=== PATIENT | male | born 1980 | race Two or more races ===

== ENCOUNTER 2016-09-23 09:21 | Emergency (ER) | payer SELFPAY ==
[2016-09-23] MEDS ORDERED: NORMAL SALINE 1000 ML 1,000 ML IV PRN (09:59)
[2016-09-23] MEDS ORDERED: ONDANSETRON 4 MG TAB.RAPDIS SL ONE (09:59)
--- NOTE | 2016-09-23 10:01 | ER Document Report ---
ED Medical Screen (RME) - General Chief Complaint: Diarrhea Stated Complaint: VOMITING/DIZZY Mode of Arrival: Ambulatory Information source: Patient TRAVEL OUTSIDE OF THE [place] IN LAST 30 DAYS: No - HPI Patient complains to provider of: Nausea and diarrhea, lightheadedness Onset: Other - 3 days Onset/Duration: Persistent Quality of pain: Achy, Cramping Severity: Mild Pain Level: 1 Associated Symptoms: Dizzy/lightheaded Exacerbated by: Denies Relieved by: Denies Similar symptoms previously: No Recently seen / treated by doctor: No Notes: 09/23/16 10:00 It is a 35-year-old male to the emergency room today complaining of 3 day history of mild crampy abdominal pain, with nausea and diarrhea that has been going on for 3 days, no blood in his stools, no fevers, no questionable food intake, no history of similar symptoms previously, he does have a history of a hernia repair multiple years ago - Related Data Allergies/Adverse Reactions: No Known Allergies Allergy (Verified 09/23/16 09:24) Past Medical History - Social History Frequency of alcohol use: None Drug Abuse: None Renal/ Medical History: Denies: Hx Peritoneal Dialysis Psychiatric Medical History: Reports: Hx Anxiety, Hx Depression - Immunizations Hx Diphtheria, Pertussis, Tetanus Vaccination: Yes Physical Exam - Vital signs Vitals: Temp Pulse Resp BP Pulse Ox 98 F 72 16 135/85 H 100 09/23/16 09:25 09/23/16 09:25 09/23/16 09:25 09/23/16 09:25 09/23/16 09:25 Course - Vital Signs Vital signs: Temp Pulse Resp BP Pulse Ox 98 F 72 16 135/85 H 100 09/23/16 09:25 09/23/16 09:25 09/23/16 09:25 09/23/16 09:25 09/23/16 09:25
[2016-09-23 11:21] LABS: ABSOLUTE BASOPHILS # (AUTO) 0.1 10^3/uL (0.0-0.2); ABSOLUTE EOSINOPHILS # (AUTO) 0.1 10^3/uL (0.0-0.6); ABSOLUTE LYMPHOCYTES (AUTO) 2.6 10^3/uL (0.5-4.7); ABSOLUTE MONOCYTES (AUTO) 0.7 10^3/uL (0.1-1.4); ABSOLUTE NEUT (AUTO) 4.8 10^3/uL (1.7-8.2); BASOPHILS % (AUTO) 0.8 % (0-2); EOSINOPHILS % (AUTO) 1.7 % (0-6); HEMATOCRIT 43.1 % (37.9-51.0); HEMOGLOBIN 14.6 g/dL (13.5-17.0); HGB HCT DIFFERENCE 0.7; MEAN CORPUSCULAR HEMOGLOBIN 31.8 pg (27.0-33.4); MEAN CORPUSCULAR HGB CONC 33.9 g/dL (32.0-36.0); MEAN CORPUSCULAR VOLUME 94 fl (80-97); MONOCYTES % (AUTO) 8.9 % (3-13); RED BLOOD COUNT 4.59 10^6/uL (4.35-5.55); RED CELL DISTRIBUTION WIDTH 13.7 % (11.5-14.0); SEGMENTED NEUTROPHILS % (AUTO) 57.6 % (42-78); WHITE BLOOD COUNT 8.3 10^3/uL (4.0-10.5)
[2016-09-23 11:37] LABS: APPEARANCE,URINE SLIGHTLY-CLOUDY; BILIRUBIN,URINE SMALL (NEGATIVE); GLUCOSE, URINE NEGATIVE (NEGATIVE); KETONES,URINE TRACE mg/dL (NEGATIVE); LEUKOCYTE ESTERASE,URINE NEGATIVE (NEGATIVE); NITRITE,URINE NEGATIVE (NEGATIVE); PROTEIN,URINE 100 mg/dL (NEGATIVE); URINE SPECIFIC GRAVITY 1.031
[2016-09-23 11:48] LABS: ALANINE AMINOTRANSFERASE 27 U/L (21-72); ALBUMIN 4.3 g/dL (3.5-5.0); ALKALINE PHOSPHATASE 65 U/L (38-126); ANION GAP 11 (5-19); ASPARTATE AMINO TRANSFERASE 19 U/L (17-59); BILIRUBIN,DIRECT 0.4 mg/dL (0.0-0.4); BILIRUBIN,TOTAL 1.8 mg/dL (0.2-1.3); BLOOD UREA NITROGEN 9 mg/dL (7-20); CALCIUM 9.7 mg/dL (8.4-10.2); CARBON DIOXIDE 27 mmol/L (22-30); CHLORIDE 104 mmol/L (98-107); CREATININE RESULT 1.01 mg/dL (0.52-1.25); GLUCOSE 94 mg/dL (75-110); POTASSIUM 3.9 mmol/L (3.6-5.0); SODIUM 141.5 mmol/L (137-145); TOTAL PROTEIN 6.9 g/dL (6.3-8.2)
[2016-09-23 12:03] LABS: URINE BARBITURATES SCREEN NEGATIVE; URINE METHADONE SCREEN NEGATIVE; URINE OPIATES LOW NEGATIVE; URINE PHENCYCLIDINE SCREEN NEGATIVE
[2016-09-23] MEDS ORDERED: NORMAL SALINE 1000 ML 1,000 ML IV ONE (12:11)
--- NOTE | 2016-09-23 12:26 | ER Document Report ---
ED General - General Chief Complaint: Diarrhea Stated Complaint: VOMITING/DIZZY Time Seen by Provider: 09/23/16 10:01 Mode of Arrival: Ambulatory Information source: Patient Notes: 35-year-old male presents with complaints of weakness dizziness and diarrhea. Patient notes for the past 3-4 days he has been having constant diarrhea denies any well water antibiotic use. Patient denies withdrawal from any medications. Patient denies any fevers chills denies any nausea or vomiting. Patient does note when they are trying to get IV access on him today in the ED he family felt weak and dizzy and became diaphoretic and almost fainted TRAVEL OUTSIDE OF THE [place] IN LAST 30 DAYS: No - HPI Onset: Just prior to arrival Onset/Duration: Sudden Quality of pain: No pain Severity: Mild Pain Level: Denies Associated symptoms: Diarrhea, Weakness Exacerbated by: Denies Relieved by: Denies Similar symptoms previously: No Recently seen / treated by doctor: No - Related Data Allergies/Adverse Reactions: No Known Allergies Allergy (Verified 09/23/16 09:24) Past Medical History - General Information source: Patient - Social History Smoking Status: Current Every Day Smoker Cigarette use (# per day): Yes Chew tobacco use (# tins/day): No Smoking Education Provided: No Frequency of alcohol use: None Drug Abuse: None Family History: Reviewed & Not Pertinent Patient has suicidal ideation: No Patient has homicidal ideation: No Renal/ Medical History: Denies: Hx Peritoneal Dialysis Psychiatric Medical History: Reports: Hx Anxiety, Hx Depression - Immunizations Hx Diphtheria, Pertussis, Tetanus Vaccination: Yes Review of Systems - Review of Systems Notes: PHYSICAL EXAMINATION: GENERAL: Well-appearing, well-nourished and in no acute distress. HEAD: Atraumatic, normocephalic. EYES: Pupils equal round and reactive to light, extraocular movements intact, sclera anicteric, conjunctiva are normal. ENT: Nares patent, oropharynx clear without exudates. Moist mucous membranes. NECK: Normal range of motion, supple without lymphadenopathy LUNGS: Breath sounds clear to auscultation bilaterally and equal. No wheezes rales or rhonchi. HEART: Regular rate and rhythm without murmurs ABDOMEN: Soft, nontender, nondistended abdomen. No guarding, no rebound. No masses appreciated. Musculoskeletal: Normal range of motion, no pitting or edema. No cyanosis. NEUROLOGICAL: Cranial nerves grossly intact. Normal speech, normal gait. Normal sensory, motor exams PSYCH: Normal mood, normal affect. SKIN: Warm, Dry, normal turgor, no rashes or lesions noted. Physical Exam - Vital signs Vitals: Temp Pulse Resp BP Pulse Ox 98 F 72 16 135/85 H 100 09/23/16 09:25 09/23/16 09:25 09/23/16 09:25 09/23/16 09:25 09/23/16 09:25 Course - Re-evaluation Re-evalutation: 09/23/16 12:25 Labwork notes no significant abnormality, patient notes he feels much better after IV fluids have been given I will give him a another bag of fluids. Patient denies any other concerns I will discharge him home at this time After performing a Medical Screening Examination, I estimate there is LOW risk for INTRACRANIAL HEMORRHAGE, ISCHEMIC CVA, MALIGNANT DYSRHYTHMIA, ACUTE CORONARY SYNDROME, MENINGITIS, PULMONARY EMBOLISM, or SEPSIS thus I consider the discharge disposition reasonable. I have reevaluated this patient multiple times and no significant life threatening changes are noted. The patient and I have discussed the diagnosis and risks, and we agree with discharging home with close follow-up with the understanding that symptoms and presentations can change. We also discussed returning to the Emergency Department immediately if new or worsening symptoms occur. We have discussed the symptoms which are most concerning (e.g., changing or worsening pain, weakness, vomiting, fever) that necessitate immediate return. - Vital Signs Vital signs: Temp Pulse Resp BP Pulse Ox 98 F 72 16 135/85 H 100 09/23/16 09:25 09/23/16 09:25 09/23/16 09:25 09/23/16 09:25 09/23/16 09:25 - Laboratory Result Diagrams: 09/23/16 10:50 09/23/16 10:50 Laboratory results interpreted by me: 09/23/16 09/23/16 10:50 10:50 Total Bilirubin 1.8 H Urine Protein 100 H Urine Ketones TRACE H Urine Bilirubin SMALL H Urine Urobilinogen 2.0 H Discharge - Discharge Clinical Impression: Weakness, Dehydration Diarrhea Qualifiers: Diarrhea type: unspecified type Qualified Code(s): R19.7 - Diarrhea, unspecified Condition: Stable Disposition: HOME, SELF-CARE Instructions: Diarrhea, Nonspecific ([facility]) Referrals: [facility] [Primary Care Provider] - Follow up in 3-5 days
[2016-09-23 13:44] VITALS: BP 127/81
== END 2016-09-23 13:45 | disposition home or self-care (01) ==
LOC: ER 09:21
DX: R53.1 Weakness (principal); E86.0 Dehydration; R19.7 Diarrhea, unspecified; R11.10 Vomiting, unspecified; R42 Dizziness and giddiness
CPT/HCPCS: 99284; 96360; 96361; 36415; 87086; 80307 ×2; 83690; 85025; 80053; 81001; S0119; J7030

== ENCOUNTER 2019-04-30 16:23 | Emergency (ER) | payer SELFPAY ==
[2019-04-30] MEDS ORDERED: IBUPROFEN 800 MG TABLET PO ONE (16:39)
[2019-04-30] MEDS ORDERED: ONDANSETRON 4 MG TAB.RAPDIS PO ONE (16:39)
--- NOTE | 2019-04-30 16:45 | ER Document Report ---
HPI - HPI Patient complains to provider of: body aches fever cough sore throat nausea Time Seen by Provider: 04/30/19 16:34 Onset: Yesterday Onset/Duration: Sudden Quality of pain: Achy Severity: Severe Pain Level: 4 Context: This 38-year-old relatively healthy male presents emergency department with complaints of fever body aches sore throat nausea cough since yesterday. Patient reports he took DayQuil this morning. Has not taken anything else. Temperature on arrival was 102. Patient complains of nausea but denies vomiting diarrhea. Patient did not receive his flu vaccine. Associated Symptoms: Body/muscle aches, Nonproductive cough, Fever, Sore throat Exacerbated by: Denies Relieved by: Denies Similar symptoms previously: No Recently seen / treated by doctor: No - CONSTITUTIONAL Constitutional: REPORTS: Fever, Chills - EENT EENT: REPORTS: Sore Throat - NEURO Neurology: REPORTS: Weakness - CARDIOVASCULAR Cardiovascular: REPORTS: Chest pain - cough - RESPIRATORY Respiratory: REPORTS: Coughing Past Medical History - General Information source: Patient - Social History Smoking Status: Current Every Day Smoker Chew tobacco use (# tins/day): No Frequency of alcohol use: None Drug Abuse: None Occupation: [employer] Lives with: Family Family History: Reviewed & Not Pertinent Patient has suicidal ideation: No Patient has homicidal ideation: No Renal/ Medical History: Denies: Hx Peritoneal Dialysis Psychiatric Medical History: Reports: Hx Anxiety, Hx Depression Surgical Hx: Negative - Immunizations Hx Diphtheria, Pertussis, Tetanus Vaccination: Yes Vertical Provider Document - CONSTITUTIONAL Agree With Documented VS: Yes Exam Limitations: No Limitations General Appearance: WD/WN, No Apparent Distress - Nontoxic looking - INFECTION CONTROL TRAVEL OUTSIDE OF THE [place] IN LAST 30 DAYS: No - HEENT HEENT: Atraumatic, Normocephalic, Pharyngeal Erythema - Good airway opens mouth wide no trismus no tonsillar exudate. negative: Conjuctival Injection, Pharyngeal Exudate, Tympanic Membrane Red, Tympanic Membrane Bulging - NECK Neck: Normal Inspection, Supple. negative: Lymphadenopathy-Left, Lymphadenopathy-Right - RESPIRATORY Respiratory: Breath Sounds Normal, No Respiratory Distress - CARDIOVASCULAR Cardiovascular: Regular Rhythm, Tachycardia - GI/ABDOMEN Gastrointestinal: Abdomen Soft, Abdomen Non-Tender - MUSCULOSKELETAL/EXTREMETIES Musculoskeletal/Extremeties: MAEW, FROM, Non-Tender - NEURO Level of Consciousness: Awake, Alert, Appropriate Motor/Sensory: No Motor Deficit - DERM Integumentary: Warm, Dry, No Rash Course - Re-evaluation Re-evalutation: 04/30/19 16:43 38-year-old male presents with flu symptoms. Complains of cough fever nausea body aches. Zofran Motrin fluids flu test strep test and chest x-ray ordered. Patient was instructed on the importance of pushing fluids. 04/30/19 17:59 Flu strep negative, chest x-ray negative. Patient reports he feels 100% better. Patient was instructed on Zofran and Motrin. Instructed push fluids good handwashing follow-up with primary care return for worsening symptoms or concerns. He verbalized understanding to all instructions. - Vital Signs Vital signs: Temp Pulse Resp BP Pulse Ox 102.9 F H 110 H 24 H 133/79 H 98 04/30/19 16:29 04/30/19 16:29 04/30/19 16:29 04/30/19 16:29 04/30/19 16:29 - Diagnostic Test Radiology reviewed: Reports reviewed Discharge - Discharge Clinical Impression: Cough, Fever, Body aches, Sore throat Condition: Stable Disposition: HOME, SELF-CARE Instructions: Antinausea Medication ([facility]), Fever ([facility]), Ibuprofen (General) ([facility]), Sore Throat ([facility]) Additional Instructions: *You have been evaluated for cough, fever, nausea body aches Your chest x-ray was negative for pneumonia. Your flu and strep test were also negative A throat culture is pending. You may be contacted in 3 to 4 days for antibiotics if needed In the meantime increase fluid intake as discussed good handwashing *Take medication as prescribed for nausea *Monitor your temperature, take Tylenol as indicated *Follow up with a primary care provider within 1 week *Return to ED for worsening condition, changes, needs, return for concerns Monitor your blood pressure. Your blood pressure was elevated today. This may be because you were anxious, in pain or because you need medication. It is important to follow up with your primary care provider for full evaluation. Prescriptions: Ibuprofen [Motrin 800 mg Tablet] 800 mg PO TID #15 tablet Forms: Elevated Blood Pressure, Return to Work Referrals: [facility] [NO LOCAL MD] - Follow up in 1 week
--- NOTE | 2019-04-30 17:07 | RADIOLOGY REPORT (SQ) ---
EXAM DESCRIPTION: CHEST 2 VIEWS COMPLETED DATE/TIME: 04/30/2019 4:53 pm REASON FOR STUDY: cough fever COMPARISON: None. EXAM PARAMETERS: NUMBER OF VIEWS: two views TECHNIQUE: Digital Frontal and Lateral radiographic views of the chest acquired. RADIATION DOSE: NA LIMITATIONS: none FINDINGS: LUNGS AND PLEURA: No opacities, masses or pneumothorax. No pleural effusion. MEDIASTINUM AND HILAR STRUCTURES: No masses or contour abnormalities. HEART AND VASCULAR STRUCTURES: Heart normal size. No evidence for failure. BONES: No acute findings. Exaggerated thoracic kyphosis. HARDWARE: None in the chest. OTHER: No other significant finding. IMPRESSION: No focal consolidation or other evidence of acute intrathoracic process. TECHNICAL DOCUMENTATION: JOB ID: [id number] [employer]- All Rights Reserved Reading location - IP/workstation name: [email or web address]
[2019-04-30 17:34] LABS: A TYPE INFLUENZA AG NEGATIVE (NEGATIVE); B INFLUENZA AG NEGATIVE (NEGATIVE)
[2019-04-30] MEDS ORDERED: ONDANSETRON ODT 4 MG TAB (6 TAB/ER DISP) PO PRN (17:59)
[2019-04-30 18:12] VITALS: BP 132/84
== END 2019-04-30 18:18 | disposition home or self-care (01) ==
LOC: ER 16:23
DX: R05 Cough (principal); R50.9 Fever, unspecified; M79.10 Myalgia, unspecified site; J02.9 Acute pharyngitis, unspecified; R11.0 Nausea; F17.200 Nicotine dependence, unspecified, uncomplicated
CPT/HCPCS: 99283; 87070; 87880; 87804; 71046; S0119